=== PATIENT | female | born 1965 | race Caucasian/White ===

== ENCOUNTER 2016-09-14 11:47 | Emergency (ER) | payer BC ==
--- NOTE | 2016-09-14 13:12 | UC ---
Throat Pain/Nasal Juan R HPI - HPI Summary HPI Summary: Sore throat for the last day along with cough and congestion. she is a nurse. - History of Current Complaint Stated Complaint: SORE THROAT Time Seen by Provider: 09/14/16 13:00 ?: No Onset/Duration: Gradual Onset Severity: Moderate Cough: Nonproductive Associated Signs & Symptoms: Positive: Dysphagia, Nasal Discharge. Negative: Drooling, Wheezing, Hoarseness, Sinus Discomfort, Fever, Vomiting, Rash - Allergies/Home Medications Allergies/Adverse Reactions: Allergies Allergy/AdvReac Type Severity Reaction Status Date / Time Cephalosporins Allergy Anaphylatic Verified 09/14/16 13:13 Shock Penicillins Allergy Anaphylatic Verified 09/14/16 13:13 Shock Home Medications: Home Medications Ibuprofen [Advil] 400 mg PO ONCE PRN 09/14/16 [History Confirmed 09/14/16] Levocetirizine Dihydrochloride [Xyzal Allergy 24Hr] 5 mg PO DAILY 09/14/16 [ History Confirmed 09/14/16] Mesalamine CAP (NF) [Delzicol (NF)] 400 mg PO BID 09/14/16 [History Confirmed ] Spironolactone (NF) [Spironolactone 50 MG (NF)] 25 mg PO BID 09/14/16 [History Confirmed 09/14/16] Thyroid [Nemo Thyroid] 30 mg PO DAILY 09/14/16 [History Confirmed 09/14/16] sulfADIAZINE (NF) [SulfADIAZine (NF)] 500 mg PO BID 09/14/16 [History Confirmed 09/14/16] PMH/Surg Hx/FS Hx/Imm Hx Previously Healthy: No - ankylosis spondylitis, inflammatory bowel. Endocrine History Of: Denies: Diabetes - Surgical History Surgical History: None - no prior tonsillectomy. - Family History Known Family History: Positive: Other - no related ent Past family history. - Social History Occupation: Employed Full-time Review of Systems All Other Systems Reviewed And Are Negative: Yes Physical Exam Triage Information Reviewed: Yes Appearance: Well-Appearing, No Pain Distress, Well-Nourished Vital Signs Reviewed: Yes Eye Exam: Normal ENT: Positive: Pharyngeal erythema, TMs normal. Negative: Tonsillar swelling, Trismus Neck exam: Normal Neck: Positive: Supple, Nontender Respiratory Exam: Normal Cardiovascular Exam: Normal Abdominal Exam: Normal Musculoskeletal Exam: Normal Neurological Exam: Normal Psychological Exam: Normal Skin Exam: Normal Throat Pain/Nasal Course/Dx - Differential Dx/Diagnosis Provider Diagnoses: sore throat Discharge - Discharge Plan Condition: Good Disposition: HOME Patient Education Materials: Pharyngitis (ED) Referrals: Suhas Wright MD [Primary Care Provider] -
[2016-09-14 13:23] VITALS: BP 136/84
== END 2016-09-14 13:50 | disposition home or self-care (01) ==
LOC: UCCORT 11:47
DX: J02.9 Acute pharyngitis, unspecified (principal); Z88.1 Allergy status to other antibiotic agents; Z88.0 Allergy status to penicillin
CPT/HCPCS: 87651; 99211; G0463